=== PATIENT | female | born 1955 | race Caucasian/White ===

== ENCOUNTER 2019-02-23 05:02 | Emergency (ER) | payer MEDICARE, OTHER ==
[2019-02-23] MEDS ORDERED: NS 0.9% 1000 ML** 1,000 ML IV.FLUID IV ONE (05:27)
[2019-02-23 05:59] LABS: ABS Eosinophils 0.1 10^3/ul (0-0.6); ABS Lymphocytes 0.5 10^3/ul (1.0-4.8); ABS Monocytes 0.2 10^3/ul (0-0.8); ABS Neutrophils 9.9 10^3/ul (1.5-7.7); Eosinophil % 0.9 %; Hematocrit 37 % (35-47); Hemoglobin 12.4 g/dL (12.0-16.0); Lymphocyte % 4.7 %; Mean Corpuscular HGB Conc 33 g/dL (31-36); Mean Corpuscular Hemoglobin 29 pg (27-31); Mean Corpuscular Volume 87 fL (80-97); Mean Platelet Volume 8.7 fL (7.4-10.4); Platelet Count 154 10^3/uL (150-450); Red Blood Count 4.27 10^6 /uL (3.70-4.87); Red Cell Distribution Width 15 % (10-15); White Blood Count 10.7 10^3/uL (3.5-10.8)
[2019-02-23 06:30] LABS: Albumin 3.8 g/dL (3.2-5.2); Albumin/Globulin Ratio 1.6 (1-3); EGFR African American 63.1 (>60); EGFR Non-African American 52.2 (>60); Globulin 2.4 g/dL (2-4); Total Bilirubin 0.4 mg/dL (0.2-1.0); Total Protein 6.2 g/dL (6.4-8.9); Troponin I 0.01 ng/mL (<0.04)
[2019-02-23 06:43] LABS: INR 1.25 (0.82-1.09)
[2019-02-23 06:48] LABS: Potassium 3.9 mmol/L (3.5-5.0)
[2019-02-23 07:15] LABS: Urine Appearance Cloudy; Urine Bacteria 2+ (Absent); Urine Bilirubin Negative (Negative); Urine Blood 1+ (Negative); Urine Color Yellow; Urine Glucose Negative (Negative); Urine Ketones Negative (Negative); Urine Nitrite Negative (Negative); Urine Protein Negative (Negative); Urine Red Blood Cell 1+(3-5/hpf) (Absent); Urine Specific Gravity 1.005 (1.010-1.030); Urine Squamous Epithelial Cell Present (Absent); Urine Urobilinogen Negative (Negative); Urine White Blood Cell 3+(>20/hpf) (Absent)
[2019-02-23 07:58] VITALS: BP 109/51
--- NOTE | 2019-02-23 11:06 | ED ---
GI/ HPI - HPI Summary HPI Summary: Patient is a 63-year-old female with a complicated medical history who presents to the ED with concern for UTI. She states she has had septicemia 3 times in the past, and was told to come to the closest ED if her temp was ever over 100.0. She states she took her temperature this morning which was 102. She also stated she felt clammy and diaphoretic last evening, but denies this currently. Patient states she is otherwise well, feeling her baseline. She was recently diagnosed with CHF, and is currently taking Lasix. She denies any SOB, CP, abdominal pain, back pain, weakness. She does not feel diaphoretic or clammy at this time, but is concerned due to her frequency of UTIs. She states she needs to take IV antibiotics only for her UTIs as she is allergic to all by mouth medications. She is a patient to the clinics at [facility] called she was able to call the clinic this morning who advised her to come here. - History of Current Complaint Chief Complaint: EDUrogenitalProblems Time Seen by Provider: 02/23/19 05:38 Stated Complaint: POSS UTI/FEVER Hx Obtained From: Patient Onset/Duration: Started Hours Ago Timing: Constant Severity: Moderate Current Severity: None Pain Intensity: 0 Associated Signs and Symptoms: Positive: Negative Aggravating Factor(s): Nothing Alleviating Factor(s): Nothing - Allergy/Home Medications Allergies/Adverse Reactions: Allergies Allergy/AdvReac Type Severity Reaction Status Date / Time acetaminophen Allergy Unknown Verified 02/23/19 05:17 Reaction Details aztreonam Allergy Unknown Verified 02/23/19 05:17 Reaction Details carbenicillin Allergy Unknown Verified 02/23/19 05:17 [From Geocillin] Reaction Details cefepime [From Maxipime] Allergy Unknown Verified 02/23/19 05:17 Reaction Details ceftazidime [From Fortaz] Allergy Unknown Verified 02/23/19 05:17 Reaction Details cephalexin Allergy Unknown Verified 02/23/19 05:17 Reaction Details ciprofloxacin [From Cipro] Allergy Unknown Verified 02/23/19 05:17 Reaction Details codeine Allergy Unknown Verified 02/23/19 05:17 Reaction Details doxycycline Allergy Unknown Verified 02/23/19 05:17 Reaction Details enoxaparin [From Lovenox] Allergy Unknown Verified 02/23/19 05:17 Reaction Details gatifloxacin [From Tequin] Allergy Unknown Verified 02/23/19 05:17 Reaction Details gentamicin Allergy Unknown Verified 02/23/19 05:17 Reaction Details glatiramer (copolymer 1) Allergy Unknown Verified 02/23/19 05:17 [From Copaxone] Reaction Details hydrocodone Allergy Unknown Verified 02/23/19 05:17 Reaction Details Latex, Natural Rubber Allergy Unknown Verified 02/23/19 05:17 Reaction Details levofloxacin [From Levaquin] Allergy Unknown Verified 02/23/19 05:17 Reaction Details lidocaine Allergy Unknown Verified 02/23/19 05:17 Reaction Details meloxicam Allergy Unknown Verified 02/23/19 05:17 Reaction Details mezlocillin Allergy Unknown Verified 02/23/19 05:17 Reaction Details morphine Allergy Unknown Verified 02/23/19 05:17 Reaction Details nitrofurantoin Allergy Unknown Verified 02/23/19 05:17 [From Macrodantin] Reaction Details Penicillins Allergy Unknown Verified 02/23/19 05:17 Reaction Details phenazopyridine Allergy Unknown Verified 02/23/19 05:17 [From Pyridium] Reaction Details pregabalin [From Lyrica] Allergy Unknown Verified 02/23/19 05:17 Reaction Details propoxyphene [From Darvon] Allergy Unknown Verified 02/23/19 05:17 Reaction Details Sulfa (Sulfonamide Allergy Unknown Verified 02/23/19 05:17 Antibiotics) Reaction Details tobramycin Allergy Unknown Verified 02/23/19 05:17 Reaction Details vancomycin Allergy Unknown Verified 02/23/19 05:17 Reaction Details Home Medications: Home Medications Acetaminophen [Tylenol Arthritis] 650 mg PO Q8H 02/23/19 [History Confirmed 05/06] Albuterol HFA INHALER* [Ventolin HFA Inhaler*] 2 puff INH Q6H PRN 02/23/19 [ History Confirmed 02/23/19] Amlodipine Besylate [Norvasc] 5 mg PO BID 02/23/19 [History Confirmed 02/23/19] Celecoxib [Celebrex] 200 mg PO BID 02/23/19 [History Confirmed 02/23/19] Gabapentin 400 mg PO TID 02/23/19 [History Confirmed 02/23/19] Hydroxychloroquine Sulfate [Plaquenil] 200 mg PO BID 02/23/19 [History Confirmed 02/23/19] L.acidoph,Paracasei, B.lactis [Probiotic] 1 each PO DAILY 02/23/19 [History Confirmed 02/23/19] Lactaid 3,000 units PO DAILY 02/23/19 [History Confirmed 02/23/19] Lactose-Reduced Food/Fiber [Jevity 1.2 Francisco Liquid] 3 ea PEG TUBE DAILY 02/23/19 [History Confirmed 02/23/19] Latanoprost 0.005%* [Xalatan 0.005%*] 1 drop BOTH EYES QPM 02/23/19 [History Confirmed 02/23/19] Losartan Potassium [Cozaar] 50 mg PO DAILY 02/23/19 [History Confirmed 02/23/19] Metoprolol Tartrate 25 mg PO BID 02/23/19 [History Confirmed 02/23/19] Ondansetron ODT TAB* [Zofran 4 MG Odt TAB*] 4 mg SL Q6H PRN 02/23/19 [History Confirmed 02/23/19] Potassium Chloride* LIQUID [Potassium Chloride LIQUID] 20 meq PEG TUBE DAILY 05/06 [History Confirmed 02/23/19] Ranitidine SOLN* (NF) ORALSYR [Zantac SOLN* ORALSYR (NF)] 75 mg PO BID 02/23/19 [History Confirmed 02/23/19] Warfarin Sodium [Coumadin] 3 mg PO DAILY 02/23/19 [History Confirmed 02/23/19] PMH/Surg Hx/FS Hx/Imm Hx Previously Healthy: No - Immunization History Hx Pertussis Vaccination: No Immunizations Up to Date: Yes Infectious Disease History: No Infectious Disease History: Denies: Traveled Outside the [place] in Last 30 Days - Social History Occupation: Unemployed Lives: Alone Alcohol Use: None Hx Substance Use: No Substance Use Type: Reports: None Hx Tobacco Use: No Smoking Status (MU): Never Smoked Tobacco Review of Systems Positive: Fever, Skin Diaphoresis. Negative: Chills, Fatigue Negative: Palpitations, Chest Pain Negative: Shortness Of Breath, Cough Positive: see HPI. Negative: burning, dysuria, flank pain, hematuria, incontinence Negative: Arthralgia, Myalgia Skin: Negative Neurological: Negative All Other Systems Reviewed And Are Negative: Yes Physical Exam Triage Information Reviewed: Yes Vital Signs On Initial Exam: Initial Vitals Temp Pulse Resp BP Pulse Ox 98.9 F 127 19 129/76 96 02/23/19 05:03 02/23/19 05:03 02/23/19 05:03 02/23/19 05:03 02/23/19 05:03 Vital Signs Reviewed: Yes Appearance: Positive: Well-Appearing, Well-Nourished Skin: Positive: Warm, Skin Color Reflects Adequate Perfusion Head/Face: Positive: Normal Head/Face Inspection Eyes: Positive: EOMI, Conjunctiva Clear Neck: Positive: Supple, No Lymphadenopathy Respiratory/Lung Sounds: Positive: Clear to Auscultation, Breath Sounds Present Cardiovascular: Positive: RRR, Pulses are Symmetrical in both Upper and Lower Extremities Musculoskeletal: Positive: Normal, Strength/ROM Intact Neurological: Positive: Alert, Oriented to Person Place, Time, Speech Normal Psychiatric: Positive: Affect/Mood Appropriate AVPU Assessment: Alert Diagnostics - Vital Signs Vital Signs Temp Pulse Resp BP Pulse Ox 02/23/19 07:58 98.3 F 90 18 109/51 95 02/23/19 07:46 92 109/51 96 02/23/19 06:19 98.9 F 98 18 124/76 97 02/23/19 06:18 124/76 02/23/19 06:17 100 94 02/23/19 05:23 98.9 F 109 20 127/76 98 02/23/19 05:22 127/76 02/23/19 05:21 117 96 02/23/19 05:03 98.9 F 127 19 129/76 96 - Laboratory Lab Results: Lab Results 02/23/19 02/23/19 02/23/19 Range/Units 05:51 05:51 05:51 WBC 10.7 (3.5-10.8) 10^3/uL RBC 4.27 (3.70-4.87) 10^6 /uL Hgb 12.4 (12.0-16.0) g/dL Hct 37 (35-47) % MCV 87 (80-97) fL MCH 29 (27-31) pg MCHC 33 (31-36) g/dL RDW 15 (10-15) % Plt Count 154 (150-450) 10^3/uL MPV 8.7 (7.4-10.4) fL Neut % (Auto) 92.1 % Lymph % (Auto) 4.7 % Kinney % (Auto) 2.2 % Eos % (Auto) 0.9 % Baso % (Auto) 0.1 % Absolute Neuts (auto) 9.9 H (1.5-7.7) 10^3/ul Absolute Lymphs (auto) 0.5 L (1.0-4.8) 10^3/ul Absolute Monos (auto) 0.2 (0-0.8) 10^3/ul Absolute Eos (auto) 0.1 (0-0.6) 10^3/ul Absolute Basos (auto) 0.0 (0-0.2) 10^3/ul Absolute Nucleated RBC 0.0 10^3/ul Nucleated RBC % 0.0 INR (Anticoag Therapy) 1.25 H (0.82-1.09) Sodium 139 (135-145) mmol/L Potassium 3.9 (3.5-5.0) mmol/L Chloride 108 (101-111) mmol/L Carbon Dioxide 23 (22-32) mmol/L Anion Gap 8 (2-11) mmol/L BUN 17 (6-24) mg/dL Creatinine 1.06 H (0.51-0.95) mg/dL Est GFR ( Amer) 63.1 (>60) Est GFR (Non-Af Amer) 52.2 (>60) BUN/Creatinine Ratio 16.0 (8-20) Glucose 134 H (70-100) mg/dL Lactic Acid (0.5-2.0) mmol/L Calcium 9.0 (8.6-10.3) mg/dL Total Bilirubin 0.40 (0.2-1.0) mg/dL AST 23 (13-39) U/L ALT 11 (7-52) U/L Alkaline Phosphatase 66 (34-104) U/L Troponin I 0.01 (<0.04) ng/mL B-Natriuretic Peptide (<=100) pg/mL Total Protein 6.2 L (6.4-8.9) g/dL Albumin 3.8 (3.2-5.2) g/dL Globulin 2.4 (2-4) g/dL Albumin/Globulin Ratio 1.6 (1-3) Urine Color Urine Appearance Urine pH (5-9) Ur Specific [place] (1.010-1.030) Urine Protein (Negative) Urine Ketones (Negative) Urine Blood (Negative) Urine Nitrate (Negative) Urine Bilirubin (Negative) Urine Urobilinogen (Negative) Ur Leukocyte Esterase (Negative) Urine WBC (Auto) (Absent) Urine RBC (Auto) (Absent) Ur Squamous Epith Cells (Absent) Urine Bacteria (Absent) Urine Glucose (Negative) 02/23/19 02/23/19 02/23/19 Range/Units 05:51 05:51 06:55 WBC (3.5-10.8) 10^3/uL RBC (3.70-4.87) 10^6 /uL Hgb (12.0-16.0) g/dL Hct (35-47) % MCV (80-97) fL MCH (27-31) pg MCHC (31-36) g/dL RDW (10-15) % Plt Count (150-450) 10^3/uL MPV (7.4-10.4) fL Neut % (Auto) % Lymph % (Auto) % Kinney % (Auto) % Eos % (Auto) % Baso % (Auto) % Absolute Neuts (auto) (1.5-7.7) 10^3/ul Absolute Lymphs (auto) (1.0-4.8) 10^3/ul Absolute Monos (auto) (0-0.8) 10^3/ul Absolute Eos (auto) (0-0.6) 10^3/ul Absolute Basos (auto) (0-0.2) 10^3/ul Absolute Nucleated RBC 10^3/ul Nucleated RBC % INR (Anticoag Therapy) (0.82-1.09) Sodium (135-145) mmol/L Potassium (3.5-5.0) mmol/L Chloride (101-111) mmol/L Carbon Dioxide (22-32) mmol/L Anion Gap (2-11) mmol/L BUN (6-24) mg/dL Creatinine (0.51-0.95) mg/dL Est GFR ( Amer) (>60) Est GFR (Non-Af Amer) (>60) BUN/Creatinine Ratio (8-20) Glucose (70-100) mg/dL Lactic Acid 2.2 H* (0.5-2.0) mmol/L Calcium (8.6-10.3) mg/dL Total Bilirubin (0.2-1.0) mg/dL AST (13-39) U/L ALT (7-52) U/L Alkaline Phosphatase (34-104) U/L Troponin I (<0.04) ng/mL B-Natriuretic Peptide 71 (<=100) pg/mL Total Protein (6.4-8.9) g/dL Albumin (3.2-5.2) g/dL Globulin (2-4) g/dL Albumin/Globulin Ratio (1-3) Urine Color Yellow Urine Appearance Cloudy Urine pH 5.0 (5-9) Ur Specific [place] 1.005 L (1.010-1.030) Urine Protein Negative (Negative) Urine Ketones Negative (Negative) Urine Blood 1+ A (Negative) Urine Nitrate Negative (Negative) Urine Bilirubin Negative (Negative) Urine Urobilinogen Negative (Negative) Ur Leukocyte Esterase 2+ A (Negative) Urine WBC (Auto) 3+(>20/hpf) A (Absent) Urine RBC (Auto) 1+(3-5/hpf) A (Absent) Ur Squamous Epith Cells Present A (Absent) Urine Bacteria 2+ A (Absent) Urine Glucose Negative (Negative) Result Diagrams: 02/23/19 05:51 02/23/19 05:51 Lab Statement: Any lab studies that have been ordered have been reviewed, and results considered in the medical decision making process. GIGU Course/Dx - Course Course Of Treatment: On arrival into the ED, the patient appears well. Nondiaphoretic and nontoxic in appearing. She is smiling on exam, alert and oriented. Lungs CTA, RR. EOMI/PERRLA. No lymphadenopathy bilaterally. She has a J-tube placement as well as an obvious port site to the right upper chest wall. She states she self-catheterizations times over 20 years for neurogenic bladder and will have frequency of UTIs. Labs obtained which are all WNL with a normal white count. She is afebrile on arrival at 98.9, tachycardia at 127, respirations 19, 96% on room air and 129/76. Her heart rate was rechecked when provider in the room at 105. She states she feels otherwise at her baseline. No evidence of CHF on todays visit at BNP of 71. UA shows obvious UTI with 2+ leukocytes, 3+ WBCs and 2+ bacteria. Discussed this with patient and she states she is only able to have IV infusions an IV abx, so will call her PCP and will obtain antibiotics through the surface. We will call the patient when culture results return. - Diagnoses Differential Diagnoses - Female: Other - sepsis Provider Diagnoses: UTI (urinary tract infection) Discharge - Sign-Out/Discharge Documenting (check all that apply): Patient Departure Patient Received Moderate/Deep Sedation with Procedure: No - Discharge Plan Condition: Stable Disposition: HOME Patient Education Materials: Rodriguez Catheter Placement and Care (ED), Catheter- associated Urinary Tract Infection (ED) Referrals: Mahi PERALTA,Berto Conn [Medical Doctor] - No Primary Care Phys,NOPCP [Primary Care Provider] - Additional Instructions: Please follow up with your PCP to set up your infusions through our clinic. We will call with urine cultures when they return so you will be able to discuss this with your physician You may call Dr. Pedro office to request the IV abx, but again, this may need to be set up through your PCP first. - Billing Disposition and Condition Condition: STABLE Disposition: Home
--- NOTE | 2019-02-25 11:29 | PN ---
Progress Note - Progress Note Date of Service: 02/23/19 Note: Final urine culture growing 50-75k e. coli and >100k klebsiella pneumoniae. Pt. reportedly can only tolerate IV antibx. I called and spoke with pt. today around 1130. Pt. states she is going to be following up with Dr. Nation, [place] , in [place]. Sensitivity was faxed to her office.
== END 2019-02-23 07:58 | disposition home or self-care (01) ==
LOC: ED 05:02
DX: N39.0 Urinary tract infection, site not specified (principal); Z88.5 Allergy status to narcotic agent; Z88.0 Allergy status to penicillin; Z88.2 Allergy status to sulfonamides; Z88.8 Allergy status to other drugs, medicaments and biological substances; Z88.6 Allergy status to analgesic agent; Z88.1 Allergy status to other antibiotic agents; Z91.040 Latex allergy status; Z79.01 Long term (current) use of anticoagulants; Z79.899 Other long term (current) drug therapy
CPT/HCPCS: 36415; 80053; 81003; 81015; 83605; 83880; 84484; 85025; 85610; 87040; 87077; 87086; 87186; 99283